=== PATIENT | female | born 2000 | race Caucasian/White ===

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

== ENCOUNTER → 2022-04-25 14:21 | Outpatient (BNVA) | payer OTHER, SELFPAY | PROVIDERS: Family Provider Family Medicine; PCP Family Medicine; Visit Provider Nurse Practitioner Women's Health | DX: Z12.4 Encounter for screening for malignant neoplasm of cervix (principal) | CPT/HCPCS: 88175 ==

== ENCOUNTER → 2022-08-13 09:40 | Outpatient (BNVA) | payer OTHER, SELFPAY | PROVIDERS: Family Provider Family Medicine; PCP Family Medicine; Visit Provider Family Medicine | DX: O26.899 Other specified pregnancy related conditions, unspecified trimester (principal); R30.0 Dysuria; Z3A.00 Weeks of gestation of pregnancy not specified | CPT/HCPCS: 80307; 81000; 81025; 84144; 84443; 84702; 85025; 86592; 86762; 86803; 86850; 86900; 87086; 87340; 87491; 87591; 87624; 87806 ==

== ENCOUNTER 2022-09-10 09:01 | Outpatient (CLI) | payer OTHER, SELFPAY ==
--- NOTE | 2022-09-10 09:15 | US_ITS ---
WS: [id number] EARLY OBSTETRICAL ULTRASOUND (<14 WEEKS). HISTORY: Dating. COMPARISON: None available. Single intrauterine gestational sac is identified. Cardiac activity at 176 BPM. [place]-rump length roro sures 3.3 cm which corresponds to a gestation of 10w1d. Normal-appearing yolk sac and amnion demonstr ated. No subchorionic hemorrhage. No free fluid. Poor visualization of the RIGHT ovary. LEFT ovary is not visualized. No adnexal masses. US/US OB <= 14 weeks fetus [id number] IMPRESSION: 1. Single intrauterine gestation of 10 weeks 1 day with an EDC of 04/07/2023. 2. Normal cardiac activity.
== END 2022-09-10 09:02 | disposition home or self-care (01) ==
PROVIDERS: PCP Family Medicine; Visit Provider Family Medicine
DX: Z36.87 Encounter for antenatal screening for uncertain dates (principal); Z3A.10 10 weeks gestation of pregnancy
CPT/HCPCS: 76801; 80307; 81000; 81025; 84144; 84443; 84702; 85025; 86592; 86762; 86803; 86850; 86900; 87086; 87340; 87491; 87591; 87624; 87806

== ENCOUNTER → 2022-09-25 16:59 | Outpatient (BNVA) | payer OTHER, SELFPAY | PROVIDERS: PCP Family Medicine; Visit Provider Family Medicine | DX: R30.0 Dysuria (principal) | CPT/HCPCS: 81000; 87086 ==

== ENCOUNTER 2022-11-29 13:25 | Outpatient (CLI) | payer OTHER, SELFPAY ==
--- NOTE | 2022-11-29 13:30 | US_ITS ---
WS: [id number] OBSTETRICAL ULTRASOUND COMPLETE HISTORY: Anatomy scan. COMPARISON: 09/10/2022 Single intrauterine gestation in Cephalic presentation. Cervix is Closed and normal length. Cervical length is 3.6 cm. Normal amount of amniotic fluid surrounds the fetus. Placenta: Posterior, no previa or abruption. Placenta grade 1 Heart: 160 BPM. 4 chamber heart is not well visualized due to position of the fetus. Outflow tracts a re also not well visualized due to position of the fetus. Anatomy: Intracranial structures and spine are normal. kidneys, stomach and urinary bladd er are unremarkable. Abdominal wall, three-vessel cord and cord insertion site are normal. 4 extremities are present. profile: Not visualized. Gender: Female measurements: BPD = 4.9 cm = 20w5d; HC = 18.5 cm = 20w6d; AC = 16.1 cm = 21w1d; FL = 3.8 cm = 22w2d; EFW: 432 g. Biometry is internally concordant. AGA by ultrasound: 21w2d DENYS by ultrasound: 04/08/2023. US/US OB >= 14 weeks fetus [id number] IMPRESSION: 1. Single intrauterine gestation of 21w2d with an DENYS of 04/08/2023. 2. Limited evaluation of the heart, outflow tracts and profile due to fe bailey position. Remaining anatomy is negative.
== END 2022-11-29 13:26 | disposition home or self-care (01) ==
LOC: RAD 13:26
PROVIDERS: PCP Family Medicine; Visit Provider Family Medicine
DX: Z34.02 Encounter for supervision of normal first pregnancy, second trimester (principal)
CPT/HCPCS: 76805

== ENCOUNTER 2022-12-25 13:57 | Outpatient (CLI) | payer OTHER, SELFPAY ==
--- NOTE | 2022-12-25 14:15 | US_ITS ---
WS: [id number] Exam: US OB limited [id number] Date/Time of Exam: 12/25/2022 2:52 PM Reason For Exam: Follow up US Limited exam NUMBER: Single PRESENTATION: Vertex CARDIAC ACTIVITY: 164 MOVEMENT: Satisfactory AMNIOTIC FLUID VOLUME: Subjectively normal PLACENTA: Posterior. No previa or abruption. ESTIMATED GESTATIONAL AGE: 25 weeks 1 day heart was unremarkable. Right and left ventricular outflow tracts were identified and appear no rmal. Facial profile appears normal. US/US OB limited [id number] IMPRESSION: Viable intrauterine with single fetus estimated at 25 weeks 1 day. Salvador osorio DENYS 04/08/2023.
== END 2022-12-25 13:58 | disposition home or self-care (01) ==
LOC: RAD 14:01
PROVIDERS: PCP Family Medicine; Visit Provider Family Medicine
DX: Z34.02 Encounter for supervision of normal first pregnancy, second trimester (principal); Z3A.25 25 weeks gestation of pregnancy
CPT/HCPCS: 76815

== ENCOUNTER → 2023-01-15 10:14 | Outpatient (BNVA) | payer OTHER, SELFPAY | PROVIDERS: PCP Family Medicine; Visit Provider Family Medicine | DX: Z34.00 Encounter for supervision of normal first pregnancy, unspecified trimester (principal) | CPT/HCPCS: 82950 ==

== ENCOUNTER → 2023-02-18 10:10 | Outpatient (BNVA) | payer OTHER, SELFPAY | PROVIDERS: PCP Family Medicine; Visit Provider Family Medicine | DX: Z51.81 Encounter for therapeutic drug level monitoring (principal) | CPT/HCPCS: 85025 ==

== ENCOUNTER → 2023-03-13 15:03 | Outpatient (BNVA) | payer OTHER, SELFPAY | PROVIDERS: PCP Family Medicine; Visit Provider Family Medicine | DX: Z34.00 Encounter for supervision of normal first pregnancy, unspecified trimester (principal) | CPT/HCPCS: 87081 ==

== ENCOUNTER → 2023-03-25 11:19 | Outpatient (BNVA) | payer OTHER, SELFPAY | PROVIDERS: PCP Family Medicine; Visit Provider Family Medicine | DX: Z34.00 Encounter for supervision of normal first pregnancy, unspecified trimester (principal); R03.0 Elevated blood-pressure reading, without diagnosis of hypertension | CPT/HCPCS: 82570; 84156 ==

== ENCOUNTER 2023-03-30 00:50 | Inpatient (IN) | payer OTHER, SELFPAY ==
[2023-03-29] VITALS (80 sets, daily range): BP systolic 123–170; BP diastolic 70–107; PULSE 80–117; RESP 17–18; TEMP 36.1–37.1; O2SAT 90–100; BMI 36.7
--- NOTE | 2023-03-29 13:55 | US_ITS ---
WS: [id number] BIOPHYSICAL PROFILE AMNIOTIC FLUID HISTORY: contractions COMPARISON: 12/25/2022 position: Vertex. Cardiac activity: 141 bpm. Cervix: Obscured by the head. Placenta: Posterior, no previa or abruption. Placenta grade: 2 Parameters are as follows: Breathin Movement: 2 Tone: 2 Fluid volume: 2 Amniotic Fluid Index: 10.7 cm. IMPRESSION: 1. Biophysical profile score: 8/8. 2. Normal amniotic fluid.
--- NOTE | 2023-03-29 15:35 | PM.HP ---
Providers/Chief Complaint Primary Care Provider: Philippe Mtz MD Chief Complaint: Contractions History of Present Illness Annika Goncalves is a 23 year old @ 38.4 weeks by LMP c/with 10 wk US. Her is currently complicated by new onset gestational hypertension with intermittent severe features. The patient presented to labor and delivery triage on the afternoon of 03/29/2023 due to contractions. The patient noted contractions that started at approximately 3:30 AM on 03/29/2023. Her contractions continued to increase and get closer together. In triage she was noted to be 2 cm and 75% effaced. After an hour and a half, she had made no change. heart tones have been in the mid 150s with moderate variability good accelerations. There was a period of time where the heart tones were flat and concerning, so a biophysical profile was done was 8 out of 8 with a fluid level of 10. The patient's initial blood pressure was elevated but then her blood pressures were declining down into the low 140s. She was monitored to see which direction these were ago and they have continued to climb. They are now moving up as high as 170/97. With her blood pressures moving up and her having regular contractions at this gestational age, it was felt best to keep her for delivery. The patient does have a headache as well as nausea without vomiting. She has had some loose stools intermittently. She denies any chest pains, shortness of breath, cough, fever, dysuria, leakage of fluid, vaginal bleeding. Medications/Allergies Home Medications Medication Instructions Recorded Confirmed Last Taken Type prenat.vits,navdeep,url-vkqk-urwyn 1 tab PO DAILY 05/29/22 03/25/23 Unknown History Finacea 15 % topical foam (azelaic 1 applic topical BID #15 grams 08/31/22 03/25/23 Unknown Rx acid) adapalene 0.3 % topical gel 1 applic topical DAILY #45 grams 09/26/22 03/25/23 Unknown Rx Allergies Allergy/AdvReac Type Severity Reaction Status Date / Time No Known Allergies Allergy Verified 08/31/22 11:54 PFSH Acute PFSH: Medical History No pertinent past medical history neghx:htn,dm,thyroid,dvt/pe PCP: [facility] Primary oligomenorrhea Surgical History No pertinent past surgical history Family History Grandfather Diabetes Maternal great grandfather Denies family history of Colon cancer Ovarian cancer Heart disease Hyperlipidemia Breast cancer Family history of thyroid problem Hypertension Uterine cancer Stroke Social History Smoking and tobacco status: never smoked Alcohol intake: never Substance/Drug Use: never 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 DTRs in the patellar tendon or normal. A&P Assessment and plan (1) Supervision of normal intrauterine in primigravida: The patient is currently jeremiah every 4 minutes. heart tones are in the mid 150s with moderate variability and good accelerations with a category 1 tracing. We will recheck the patient and approximately half an hour and if no further changes been made, then we will plan to add IV Pitocin to augment labor. (2) Gestational hypertension: The patient's blood pressures have significantly increased and she is having intermittent severe blood pressure readings. We will treat these and if her blood pressures continue to stay elevated, we may need to give IV magnesium. We will get the preeclamptic work-up done and compare her urine protein creatinine ratio to 1 done on Saturday. I discussed the benefits versus risks of delivery versus waiting and the patient and her are in agreement with the current plan of care. Attestations Medical Necessity Statement*: The patient will be here for greater than 2 midnights due to routine intrapartum and management of labor and delivery. Coding Level of Care Code Acute Code for Chg Fwd Diagnoses Supervision of normal intrauterine in primigravida Z34.00 Gestational hypertension O13.9
[2023-03-29] MEDS: labetalol 5 mg/mL SDV 20mL 20 MG IVP (16:01)
[2023-03-29 16:14] LABS: Basophils % 0.2 %; Eosinophils % 0.2 %; Hematocrit 38.6 % (36-47); Lymphocytes # 1.3 10^3/uL (0.8-4.8); Lymphocytes % 10.4 %; Mean Corpuscular HGB Conc 35.2 g/dL (30-55); Mean Corpuscular Hemoglobin 31.3 pg (27-33); Mean Corpuscular Volume 88.9 fl (85-98); Mean Platelet Volume 9.9 fL (7.4-10.4); Monocytes # 0.9 10^3/uL (0.2-0.9); Monocytes % 7.3 %; Neutrophils # 10.05 10^3/uL (1.8-7.7); Neutrophils % 81.3 %; Nucleated Red Blood Cells % 0 %; Platelet Count 187 10^3/cmm (157-399); Red Blood Count 4.34 10^6/uL (3.85-5.65); Red Cell Distribution Width 12.3 % (12.1-15.1); White Blood Count 12.39 10^3/uL (3.29-11.43)
[2023-03-29 16:43] LABS: Alanine Aminotransferase 10 U/L (0-33); Albumin Level 4.1 g/dL (3.5-5.2); Alkaline Phosphatase 162 U/L (35-105); Anion Gap 16.9 (5-19); Aspartate Amino Transferase 15 U/L (0-32); Blood Urea Nitrogen 7 mg/dL (6-20); Calcium 9.2 mg/dL (8.5-10.5); Carbon Dioxide 21 mmol/L (22-29); Chloride 104 mmol/L (98-107); Globulin 2.7 g/dL (1.3-4.6); Glomerular Filtration Rate 154.3 mL/min (90-130); Glucose 78 mg/dL (65-115); Osmolality Calculated 283 mOsm/kg (285-295); Potassium 3.9 mmol/L (3.5-5.1); Sodium 138 mmol/L (136-145); Total Bilirubin 0.4 mg/dL (0.15-1.2); Total Protein 6.8 g/dL (6.6-8.7); Uric Acid 4.5 mg/dL (2.4-5.7)
[2023-03-29 16:44] LABS: Urine Creatinine 145 mg/dL (28-217)
[2023-03-29 16:45] LABS: UPRO/UCREAT Ratio 0.19 mg/mg CR; Urine Protein Random 28 mg/dL
[2023-03-29] MEDS: labetalol 5 mg/mL SDV 20mL 40 MG IVP (16:45)
[2023-03-29] MEDS: lactated ringers 1,000 ML 999 ML IV ×2 (17:50→19:28)
[2023-03-29] MEDS: ondansetron 2 mg/ML SDV 2 mL 4 MG IVP (17:57)
--- NOTE | 2023-03-29 18:51 | P.ANESASSM_ITS ---
Pre-Anesthetic Assessment Height/Weight: Height 1.63 m Weight 97.069 kg Temp Pulse Resp BP O2 Del Method 97.7 F 99 18 136/88 Room Air 03/29/23 17:53 03/29/23 18:40 03/29/23 16:18 03/29/23 18:40 03/29/23 16:00 Preop Diagnosis: IUP Labor Epidural Familial anesthetic complications: None Was Beta Alfie taken within 24 hours: Yes Last intake: 1100- solid food clears current Social No alcohol and No tobacco Exam alert, oriented x 3 and clear to auscultation bilaterally Airway Submandibular: within normal limits Cervical ROM: within normal limits Mallampati: Class II Dentition: full History/ROS No significant history except as noted Pulmonary None reported CV/HEM Hypertension (Gestational HTN) None reported Hepatic None reported GI Gastroesophageal Reflux Disease Metabolic None reported Musc/skel None reported Neuropsych None reported Anesthetic Plan ASA status: 2 Anesthesia: Regional (specify below) Other: Labor Epidural Medications/Allergies Home Medications Medication Instructions Recorded Confirmed Last Taken Type prenat.vits,navdeep,bvo-qiac-glcde 1 tab PO DAILY 05/29/22 03/25/23 Unknown History Finacea 15 % topical foam (azelaic 1 applic topical BID #15 grams 08/31/22 03/25/23 Unknown Rx acid) adapalene 0.3 % topical gel 1 applic topical DAILY #45 grams 09/26/22 03/25/23 Unknown Rx Allergies Allergy/AdvReac Type Severity Reaction Status Date / Time No Known Allergies Allergy Verified 08/31/22 11:54 Current Medications Generic Name Dose Route Start Last Admin Trade Name Violet PRN Reason Stop Dose Admin Lactated Ringer's 1,000 mls @ 999 mls/hr 03/29/23 16:17 03/29/23 17:50 Lactated Ringers IV 999 mls/hr .Q1H1M PRN Administration Per L&D Rescitation Protocol Labetalol HCl 20 mg 03/29/23 15:23 03/29/23 16:01 Labetalol 5 Mg/Ml Sdv 20ml IVP 20 mg PRN PRN Administration HYPERTENSION Protocol Labetalol HCl 40 mg 03/29/23 15:23 03/29/23 16:45 Labetalol 5 Mg/Ml Sdv 20ml IVP 40 mg PRN PRN Administration HYPERTENSION Protocol Ondansetron HCl 4 mg 03/29/23 16:17 03/29/23 17:57 Ondansetron 2 Mg/Ml Sdv 2 Ml IVP 4 mg Q4H PRN Administration NAUSEA AND VOMITING PFSH Anesthesia Medical History No pertinent past medical history neghx:htn,dm,thyroid,dvt/pe PCP: [facility] Primary oligomenorrhea Surgical History No pertinent past surgical history Family History Grandfather Diabetes Maternal great grandfather Denies family history of Colon cancer Ovarian cancer Heart disease Hyperlipidemia Breast cancer Family history of thyroid problem Hypertension Uterine cancer Stroke Social History Smoking and tobacco status: never smoked Alcohol intake: never Substance/Drug Use: never 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 Reproductive History : 1 Data Anesthesia 03/29/23 15:57 03/29/23 15:57 Short CBC 03/29/23 Range/Units 15:57 WBC 12.39 H (3.29-11.43) 10^3/uL Hgb 13.60 (11.27-16.99) g/dL Hct 38.6 (36-47) % MCV 88.9 (85-98) fl Plt Count 187 (157-399) 10^3/cmm Neut % (Auto) 81.3 % Neut # (Auto) 10.05 H (1.8-7.7) 10^3/uL BMP 03/29/23 15:57 Sodium 138 Potassium 3.9 Chloride 104 Carbon Dioxide 21 L BUN 7 Creatinine 0.5 Glucose 78 Calcium 9.2 Liver Function 03/29/23 Range/Units 15:57 Total Bilirubin 0.4 (0.15-1.2) mg/dL AST 15 (0-32) U/L ALT 10 (0-33) U/L Alkaline Phosphatase 162 H (35-105) U/L Albumin 4.1 (3.5-5.2) g/dL Cardiac Studies: No Data to Display Anesthesia Procedures Epidural Time Out Performed: Yes Consent: from patient, risks and benefits reviewed and patient agrees to proceed Lumbar Level: L3-L4 Epidural position: sitting Epidural procedure: sterile prep of area, 1% lidocaine to numb the area, negative for paresthesia passed, test dose given, 1.5% xylocaine 1:200k epi, placed PCEA, no systemic response, sterile dressing applied, L.U.D. no apparent complications and 0.2% Ropiavacaine @ mls/hr (10) Additional Comments: LINDSAY at 7cm on second attempt catheter threaded to 12cm - heme - csf. Patient r eports analgesia, VSS.
[2023-03-29] MEDS: ROPivacaine syringe 100 MG/50 ML SYRINGE 10 MG EPIDURAL ×2 (19:30→22:26)
[2023-03-29] MEDS: oxytocin 30 UNIT/500 ML BAG IV (20:10)
[2023-03-29] MEDS: dextrose 5%-lactated ringers 1,000 ML 125 ML IV (20:30)
[2023-03-30] VITALS (22 sets, daily range): BP systolic 127–156; BP diastolic 80–111; PULSE 92–123; RESP 15–19; TEMP 36.3–37.4; O2SAT 96–98
[2023-03-30] MEDS: lidocaine 2% INJ 20 mL INJECTION (01:16)
--- NOTE | 2023-03-30 01:32 | PM.DELIVERY ---
Delivery Note: Date of delivery: March 30, 2023 Pre-delivery diagnoses: 1. Intrauterine at 38.5 weeks gestation 2. Gestational hypertension Post-delivery diagnoses: 1. Intrauterine status post spontaneous vaginal delivery at 38.5 weeks gestation 2. Gestational hypertension 3. Meconium stained fluid 4. Delivery of healthy female weighing 7 pounds 2 ounces with Apgars of 8 and 8 Procedure: Spontaneous vaginal delivery Delivering Physician: Philippe Mtz MD Estimated blood loss (mL): 250 Findings: 1. Intact placenta with central umbilical cord insertion site 2. Healthy female weighing 7 pounds 2 ounces with Apgars of 8 and 8 Pre-Delivery Course: Annika Goncalves is a 23 year old G1 now P1 status post spontaneous vaginal delivery @ 38.5 weeks by LMP c/with 10 wk US.? Her was complicated by new onset gestational hypertension upon presentation to labor and delivery. The patient presented to labor and delivery triage on the afternoon of 03/29/2023 due to contractions.? The patient noted contractions that started at approximately 3:30 AM on 03/29/2023.? Her contractions continued to increase and get closer together.? In triage she was noted to be 2 cm and 75% effaced.? After an hour and a half, she had made no change.? heart tones have been in the mid 150s with moderate variability good accelerations.? The patient's blood pressure is then started to increase up to the 160s to 170s systolic. Because of this she was monitored further and she then began to make change on her own to 3 cm dilation. The patient was kept for spontaneous labor and intermittent severe blood pressures. The patient was given IV labetalol for treatment of the elevated blood pressures. She responded well. The patient received a laboring epidural and had good anesthesia from this. Afterwards, the patient's blood pressure decreased well. And she did not need further doses of IV labetalol. The patient was given IV Pitocin to help augment labor and the patient made steady change. SROM took place at 12:05 AM on 03/30/2023. The patient was then completed by 12:14 AM on 03/30/2023. Delivery: The patient began pushing at 12:37 AM on 03/30/2023. The patient pushed well and the infant delivered in the OA position had 12:46 AM on 03/30/2023. A nuchal cord was present and reduced prior to delivery of the infant. The right shoulder was anterior shoulder and it delivered with ease. The rest of the infant delivered with ease. The infant's mouth and nose were bulb suction by myself. The infant was crying immediately after delivery. The infant was placed on the mother's chest where the nurses were waiting to care for her. The cord was clamped by myself and cut by the infant's father. Cord blood was obtained. The cord was then drained blood and traction was placed on umbilical cord. Uterine massage was carried out and the placenta delivered at 12:50 AM without complication. The placenta was noted to be intact with a central umbilical cord insertion site. IV Pitocin was bolused. The patient initially had moderate to heavy bleeding that improved with uterine massage. The cervix was inspected and no lacerations were noted. The vaginal wall was inspected and a right and left second-degree labial laceration were noted. The laceration on the left was not bleeding and did not need suturing. The lesion on the right was bleeding and repair was needed. 2% lidocaine was placed for anesthesia. The laceration was repaired using 3-0 Vicryl in a running fashion. The patient tolerated this well. A rectal exam was done and no sutures were noted in the rectal vault. Currently both the mother and infant are doing well. History History History 1 Term 1 0 Miscarriages/Ectopic 0 Living Children 1 Past Pregnancies Del. Date GA/Weeks Outcome Route Wt Inf Gender Labor Lgth Comp. Anesthesia Location 03/30/23 38 live - full term Vaginal 7 lb 2 oz Female 21 hr regional [facility] - [facility] Delivery Date: 03/30/23 Last Updated by: Philippe Mtz MD Spontaneous labor, [place] that started at delivery. A&P Assessment and plan (1) Spontaneous vaginal delivery: (2) Gestational hypertension: Coding Level of Care Code Acute Code for Chg Fwd Diagnoses Spontaneous vaginal delivery O80 Gestational hypertension O13.9
[2023-03-30] MEDS: oxytocin 30 UNIT/500 ML BAG 125 UNIT IV (01:46)
[2023-03-30] MEDS: dextrose 5%-lactated ringers 1,000 ML 125 ML IV (04:18)
--- NOTE | 2023-03-30 08:33 | ANE.PACU2 ---
Inpatient post-anesthesia follow up: Airway intact: Yes Vital signs: Temperature 98.5 F Pulse Rate 97 Respiratory Rate 18 Blood Pressure 127/80 Pulse Oximetry 97 Oxygen Delivery Me thod Room Air Oxygen Flow Rate Fraction of Inspir ed Oxygen Hydration adequate: Yes Nausea and vomiting: No Pain level: 2 Mental status: Baseline Additional Comments: Anes start 03/29/23 @1357 Anes end 03/30/23 @0203
[2023-03-30] MEDS: ibuprofen 800 mg tablet PO ×3 (09:37→20:39)
[2023-03-30] MEDS: prenatal vitamin Capsule 1 CAP PO (09:37)
[2023-03-30] MEDS: docusate sodium 100 mg Capsule PO ×2 (09:37→20:39)
[2023-03-30 13:54] LABS: Basophils % 0.2 %; Eosinophils # 0.1 10^3/uL (0.0-0.8); Eosinophils % 0.9 %; Hematocrit 27.4 % (36-47); Lymphocytes # 1.5 10^3/uL (0.8-4.8); Lymphocytes % 14.7 %; Mean Corpuscular HGB Conc 35.8 g/dL (30-55); Mean Corpuscular Hemoglobin 31.8 pg (27-33); Mean Platelet Volume 9.9 fL (7.4-10.4); Monocytes % 9.8 %; Neutrophils # 7.67 10^3/uL (1.8-7.7); Neutrophils % 73.7 %; Nucleated Red Blood Cells % 0 %; Platelet Count 154 10^3/cmm (157-399); Red Blood Count 3.08 10^6/uL (3.85-5.65); Red Cell Distribution Width 12.6 % (12.1-15.1)
[2023-03-31 04:04] VITALS: BP 136/84; PULSE 76; RESP 16; TEMP 36.7; O2SAT 98
[2023-03-31] MEDS: docusate sodium 100 mg Capsule PO (09:15)
[2023-03-31] MEDS: ibuprofen 800 mg tablet PO ×2 (09:16→15:32)
[2023-03-31] MEDS: prenatal vitamin Capsule 1 CAP PO (09:16)
[2023-03-31 09:18] VITALS: BP 152/108; PULSE 76; RESP 17; TEMP 36.6; O2SAT 98
--- NOTE | 2023-03-31 09:54 | PM.DCS ---
Discharge Providers Date of Admission: 03/30/23 00:50 Date of Discharge: March 31, 2023 Attending Provider at Admission: Philippe Mtz MD Attending Provider at Discharge: Philippe Mtz MD Primary Care Provider: Philippe Mtz MD Diagnoses at Discharge Discharge Diagnosis (1) Spontaneous vaginal delivery: Status: Resolved (2) Gestational hypertension: Status: Acute Other Information Additional DC diagnoses/information: 1.? Intrauterine status post spontaneous vaginal delivery at 38.5 weeks gestation 2.? Gestational hypertension 3.? Meconium stained fluid 4.? Delivery of healthy infant female weighing 7 pounds 2 ounces with Apgars of 8 and 8 Reason for Visit Reason for Visit: Contractions Brief History: Annika Goncalves is a 23 year old G1 now P1 status post spontaneous vaginal delivery @ 38.5 weeks by LMP c/with 10 wk US.? Her was complicated by new onset gestational hypertension upon presentation to labor and delivery. The patient presented to labor and delivery triage on the afternoon of 03/29/2023 due to contractions.? The patient noted contractions that started at approximately 3:30 AM on 03/29/2023.? Her contractions continued to increase and get closer together.? In triage she was noted to be 2 cm and 75% effaced.? After an hour and a half, she had made no change.? heart tones have been in the mid 150s with moderate variability good accelerations.? The patient's blood pressure is then started to increase up to the 160s to 170s systolic.? Because of this she was monitored further and she then began to make change on her own to 3 cm dilation.? The patient was kept for spontaneous labor and intermittent severe blood pressures. Hospital Course Hospital Course The patient made steady progress and delivered at 12:46 AM on 03/30/2023. The patient had no significant complications with the labor process other than needing a few doses of IV labetalol due to severe pressures. Her blood pressures are currently in the 150s over 100s. We will start her on labetalol 100 mg twice a day and have her monitor her blood pressure at home. If her blood pressures are staying elevated, we will continue to increase her dose as needed. The patient has been feeling well overall and denies any symptoms related to her blood pressure. the patient is doing well otherwise and her bleeding is slowing down well. She is ambulating, voiding, passing gas and tolerating food by mouth. We discussed the need to keep her activity levels decreased especially over the next week and discussed routine discharge instructions. We will plan to discharge her this afternoon as long as everything continues to go well. All questions were answered. The patient and her are in agreement with current plan of care. Physical Exam Narrative: General: Alert and oriented x3 Cardiac: Regular rate and rhythm without murmurs Lungs: Clear to auscultation bilaterally without wheezes, crackles or rhonchi Abdomen: Soft, mild tenderness over uterus. The uterus is firm and 1 cm below the umbilicus. Extremities: +1 pitting edema in the bilateral lower extremities. Deep tendon reflexes are normal. Urinary Catheter Management: Menard: Cath Placed During This Visit: yes, but has since been removed by the nurse Reason for Continuing Indwelling Catheter: Decision to DC Catheter Urinary Catheter Date of Insertion: 03/29/23 Urinary Catheter Time of Insertion: 20:00 Date Urinary Catheter Removed: 03/30/23 Time Urinary Catheter Discontinued: 00:35 Discharge Data Studies Completed and Pending Completed Studies During Hospitalization Category Date Time Status US OB BPP wo NST 71212 Routine Ultrasound 03/29/23 13:55 Completed Laboratory Results WBC 10.40 10^3/uL (3.29-11.43) 03/30/23 13:40 Corrected WBC Cancelled 03/30/23 13:10 RBC 3.08 10^6/uL (3.85-5.65) L 03/30/23 13:40 Hgb 9.80 g/dL (11.27-16.99) L 03/30/23 13:40 Hct 27.4 % (36-47) L 03/30/23 13:40 MCV 89.0 fl (85-98) 03/30/23 13:40 MCH 31.8 pg (27-33) 03/30/23 13:40 MCHC 35.8 g/dL (30-55) 03/30/23 13:40 RDW 12.6 % (12.1-15.1) 03/30/23 13:40 Plt Count 154 10^3/cmm (157-399) L 03/30/23 13:40 MPV 9.9 fL (7.4-10.4) 03/30/23 13:40 Neut % (Auto) 73.7 % 03/30/23 13:40 Lymph % (Auto) 14.7 % 03/30/23 13:40 [place] % (Auto) 9.8 % 03/30/23 13:40 Eos % (Auto) 0.9 % 03/30/23 13:40 Baso % (Auto) 0.2 % 03/30/23 13:40 Neut # (Auto) 7.67 10^3/uL (1.8-7.7) 03/30/23 13:40 Lymph # (Auto) 1.5 10^3/uL (0.8-4.8) 03/30/23 13:40 [place] # (Auto) 1.0 10^3/uL (0.2-0.9) H 03/30/23 13:40 Eos # (Auto) 0.1 10^3/uL (0.0-0.8) 03/30/23 13:40 Baso # (Auto) 0.0 10^3/uL (0.0-0.1) 03/30/23 13:40 Nucleated RBC % (auto) 0 % 03/30/23 13:40 Nucleated RBCs # 0.0 /100WBC 03/30/23 13:40 Sodium 138 mmol/L (136-145) 03/29/23 15:57 Potassium 3.9 mmol/L (3.5-5.1) 03/29/23 15:57 Chloride 104 mmol/L (98-107) 03/29/23 15:57 Carbon Dioxide 21 mmol/L (22-29) L 03/29/23 15:57 Anion Gap 16.9 (5-19) 03/29/23 15:57 BUN 7 mg/dL (6-20) 03/29/23 15:57 Creatinine 0.5 mg/dL (0.5-0.9) 03/29/23 15:57 GFR Calculation 154.3 mL/min (90-130) H 03/29/23 15:57 Glucose 78 mg/dL (65-115) 03/29/23 15:57 Calculated Osmolality 283 mOsm/kg (285-295) L 03/29/23 15:57 Uric Acid 4.5 mg/dL (2.4-5.7) 03/29/23 15:57 Calcium 9.2 mg/dL (8.5-10.5) 03/29/23 15:57 Total Bilirubin 0.4 mg/dL (0.15-1.2) 03/29/23 15:57 AST 15 U/L (0-32) 03/29/23 15:57 ALT 10 U/L (0-33) 03/29/23 15:57 Alkaline Phosphatase 162 U/L (35-105) H 03/29/23 15:57 Total Protein 6.8 g/dL (6.6-8.7) 03/29/23 15:57 Albumin 4.1 g/dL (3.5-5.2) 03/29/23 15:57 Globulin 2.7 g/dL (1.3-4.6) 03/29/23 15:57 U Random Total Protein 28 mg/dL 03/29/23 15:57 Urine Creatinine 145 mg/dL (28-217) 03/29/23 15:57 Protein/Creatinin Ratio 0.19 mg/mg CR 03/29/23 15:57 Blood Type O Positive 03/29/23 15:57 Rho(D) Type Positive 03/29/23 15:57 Antibody Screen Negative 03/29/23 15:57 Vitals Last Vital Signs Temp 97.8 F 03/31/23 09:18 Pulse 76 03/31/23 09:18 Resp 17 03/31/23 09:18 BP 152/108 03/31/23 09:18 Pulse Ox 98 03/31/23 09:18 O2 Del Method Room Air 03/31/23 09:18 Discharge Plan Discharge Patient Disposition: Home Condition: Good Prescriptions: New ibuprofen 800 mg Tablet 800 mg PO TID Qty: 30 0RF ferrous sulfate 325 mg (65 mg iron) tablet 325 mg PO DAILY Qty: 30 0RF Continued prenat.vits,navdeep,huy-vncz-mvgxj Tablet 1 tab PO DAILY Finacea 15 % foam 1 applic topical BID Qty: 15 6RF Rx Instructions: apply to face twice a day adapalene 0.3 % gel 1 applic topical DAILY Qty: 45 6RF Rx Instructions: Apply pea-sized amount to clean dry, face nightly Discontinued Adacel(Tdap Adolesn/Adult)(PF) 2 Lf-(2.5-5-3-5 mcg)-5Lf/0.5 mL syringe 0.5 ml IM ONCE Qty: 0.5 0RF Discharge Orders: Discharge Order (Routine); Ordered 03/31/23 Ordered By: Philippe Mtz Referrals: Philippe Mtz MD [Primary Care Provider] - 4-7 days (Also 6 weeks ) Discharge Diet: Regular Discharge Activity: Limit activity as instructed Patient Instructions: Depression (DC), Bleeding (DC), Preeclampsia and Eclampsia After Delivery (GEN), Hemorrhage (DC), OB Caring for Baby - [facility], OB Discharge Report, OB Food/Drug Interaction Guide, Opioid Safety, OB Your Care - [facility], OB Vaginal Deliveries Activity Restrictions/Additional Instructions: Keep overall activity levels low for the next week to allow your body to heal. Check your blood pressure twice a day and if your blood pressures are getting above 160/110, please contact Dr. Mtz for further recommendations. Nothing per vagina for 6 weeks. Discharge Attestations Time Spent in Discharge Care*: greater than 30 min Quality Metrics Clinical Quality Measures [ No reported AMI, CVA or VTE this stay] Coding Level of Care Code Acute Code for Chg Fwd Diagnoses Spontaneous vaginal delivery O80 Gestational hypertension O13.9
[2023-03-31 15:43] VITALS: BP 155/106; PULSE 101; RESP 17; TEMP 36.8; O2SAT 97
[2023-03-31 16:40] VITALS: BP 155/106; PULSE 101; RESP 17; TEMP 36.8; O2SAT 97
== END 2023-03-31 16:40 | disposition home or self-care (01) | DRG 807 ==
LOC: OPOB 04-05 07:38
PROVIDERS: Admitting Provider Family Medicine; PCP Family Medicine; Visit Provider Family Medicine
DX: O13.4 Gestational [pregnancy-induced] hypertension without significant proteinuria, complicating childbirth (principal); Z37.0 Single live birth; O77.0 Labor and delivery complicated by meconium in amniotic fluid; O69.81X0 Labor and delivery complicated by cord around neck, without compression, not applicable or unspecified; Z3A.38 38 weeks gestation of pregnancy; O70.1 Second degree perineal laceration during delivery
CPT/HCPCS: 36415; 51702; 59025; 59409; 76819; 80053; 82570; 84156; 84550; 85025; 86850; 86900; 99211; J2405; J2590; J2795; J3490; J7120; J7121

== ENCOUNTER → 2024-08-01 11:21 | Outpatient (BNVA) | payer BC, SELFPAY | PROVIDERS: PCP Family Medicine | DX: J02.9 Acute pharyngitis, unspecified (principal) | CPT/HCPCS: 87880 ==

== ENCOUNTER → 2024-12-09 10:31 | Outpatient (BNVA) | payer OTHER, SELFPAY | PROVIDERS: PCP Family Medicine; Visit Provider Nurse Practitioner Family | DX: J02.9 Acute pharyngitis, unspecified (principal) | CPT/HCPCS: 87880 ==

== ENCOUNTER → 2025-02-16 10:58 | Outpatient (BNVA) | payer OTHER, SELFPAY | PROVIDERS: PCP Family Medicine; Visit Provider Nurse Practitioner Women's Health | DX: N92.6 Irregular menstruation, unspecified (principal) | CPT/HCPCS: 81025 ==

== ENCOUNTER 2025-02-28 09:25 | Outpatient (CLI) | payer OTHER, SELFPAY ==
--- NOTE | 2025-02-28 09:28 | USR_ITS ---
PROCEDURE INFORMATION: Exam: US First Trimester, Transabdominal and US , Transvaginal Exam date and time: 02/28/2025 10:22 AM Age: 25 years old Clinical indication: Lmp or gestational age (in weeks): 5w5d by US. 8w0d by lmp; Antepartum complications; Bleeding; ; Additional info: Spotting/cramping at 8 weeks gestation LABS AND CLINICAL REPORTS: Last menstrual period start date: 01/03/2025 Gestational age (Established): 8 w 0 d Estimated due date (Established): 10/10/2025 TECHNIQUE: Imaging protocol: Real-time transabdominal obstetrical ultrasound of the maternal pelvis and a first trimester , less than 14 weeks 0 days, with image documentation. Transvaginal imaging was used for better evaluation of the fetus, adnexa, and/or cervix. COMPARISON: US OB BPP NST [id number] 03/29/2023 2:17 PM FINDINGS: GESTATION: Gestation: Yolk sac measures 1.1 mm. There is an intrauterine gestation with yolk sac and embryo. Embryonic heart tones are identified with low heart rate of 54 bpm. [place]-rump length is 0.16 cm. Mean sac diameter is 0.95 cm, corresponding to sonographic age of 5 weeks and 5 days. A subchorionic hemorrhage is seen measuring 1.4 x 0.3 x 0.9 cm. Trace fluid is seen in the cervix. Embryo/ cardiac activity (BPM): 54 bpm Extra-embryonic membranes/Placenta: See Gestation finding. Amniotic/Chorionic fluid: Amniotic and extra-amniotic fluid are normal for gestational age. BIOMETRY: Gestational age (AUA): 5 weeks 5 days Mean sac diameter: 0.95 cm. EGA (MSD) is 5 w 5 d MATERNAL: Uterus: Unremarkable. Cervix: Cervical length measures 0 cm. Right ovary/adnexa: Obscured by lack of adequate acoustic window. Left ovary/adnexa: Obscured by lack of adequate acoustic window. Intraperitoneal space: Trace echogenic fluid in the cul-de-sac. Other findings: The ovaries are within normal limits with normal blood flow. US/US OB <=14 wk fetus w transvag IMPRESSION: Intrauterine gestation with very small embryo. Sonographic age is 5 weeks and 5 days based on mean gestational sac diameter. Embryonic heart rate is low, warranting short-term follow-up ultrasound and close clinical correlation. There is also a subchorionic hemorrhage.
--- NOTE | 2025-02-28 09:35 | PM.OBTRLD ---
OB L&D Triage Visit Information: Date of evaluation: 02/28/25 Reason for evaluation: other (Vaginal bleeding in early ) Comments/Additional reason(s) for visit: 24 year old CC:Vaginal bleeding and cramping in first trimester, no dating ultrasound yet,8w3d by LMP 01/03/2025. Scheduled for dating US next week. Inpatient TVUS with findings of slow FHR, approx GA of 5wks and CAMERON. Evaluation: Baseline heart rate: 54 Vital signs: Maternal,stable. Comments: Afebrile, no distress, minimal bleeding/dark. Not cramping at this time. RH POS BG Final Diagnosis Final Diagnosis 1. Vaginal bleeding affecting early : Plan: TVUS ordered with results of ~5wk , low FHR, and CAMERON. Discussed findings with patients. Will continue expectant with outpatient fup. No need for RhoGam. Status: Acute Code(s): O20.9 - Hemorrhage in early , unspecified Other Information/Follow up FINDINGS: GESTATION: Gestation: Yolk sac measures 1.1 mm. There is an intrauterine gestation with yolk sac and embryo. Embryonic heart tones are identified with low heart rate of 54 bpm. [place]-rump length is 0.16 cm. Mean sac diameter is 0.95 cm, corresponding to sonographic age of 5 weeks and 5 days. A subchorionic hemorrhage is seen measuring 1.4 x 0.3 x 0.9 cm. Trace fluid is seen in the cervix. Embryo/ cardiac activity (BPM): 54 bpm Extra-embryonic membranes/Placenta: See Gestation finding. Amniotic/Chorionic fluid: Amniotic and extra-amniotic fluid are normal for gestational age. BIOMETRY: Gestational age (AUA): 5 weeks 5 days Mean sac diameter: 0.95 cm. EGA (MSD) is 5 w 5 d Coding Level of Care Code Acute Code for Chg Fwd Diagnoses Vaginal bleeding affecting early O20.9
== END 2025-02-28 11:00 | disposition home or self-care (01) ==
LOC: OPOB 09:25 → OBGYN 09:26
PROVIDERS: PCP Family Medicine; Visit Provider Obstetrics & Gynecology
DX: O26.851 Spotting complicating pregnancy, first trimester (principal); Z3A.08 8 weeks gestation of pregnancy
CPT/HCPCS: 12345; 76801; 76817; 99211

== ENCOUNTER → 2025-03-02 11:56 | Outpatient (BNVA) | payer OTHER, SELFPAY | PROVIDERS: PCP Family Medicine; Visit Provider Obstetrics & Gynecology | DX: O20.9 Hemorrhage in early pregnancy, unspecified (principal) | CPT/HCPCS: 84702 ==

== ENCOUNTER → 2025-03-03 15:26 | Outpatient (BNVA) | payer OTHER, SELFPAY | PROVIDERS: PCP Family Medicine; Visit Provider Obstetrics & Gynecology | DX: N93.9 Abnormal uterine and vaginal bleeding, unspecified (principal) | CPT/HCPCS: 76817 ==

== ENCOUNTER → 2025-04-09 09:42 | Outpatient (BNVA) | payer OTHER, SELFPAY | PROVIDERS: PCP Family Medicine; Visit Provider Nurse Practitioner Women's Health | DX: O20.9 Hemorrhage in early pregnancy, unspecified (principal) | CPT/HCPCS: 84702 ==

== ENCOUNTER 2025-04-12 09:34 | Outpatient (CLI) | payer OTHER, SELFPAY | END 2025-04-12 09:35 | disposition home or self-care (01) | LOC: LAB 09:35 | PROVIDERS: PCP Family Medicine; Visit Provider Nurse Practitioner Women's Health | DX: O20.0 Threatened abortion (principal) | CPT/HCPCS: 84702 ==

== ENCOUNTER → 2025-05-11 12:57 | Outpatient (BNVA) | payer OTHER, SELFPAY | PROVIDERS: PCP Family Medicine; Visit Provider Nurse Practitioner Women's Health | DX: O20.9 Hemorrhage in early pregnancy, unspecified (principal) | CPT/HCPCS: 84702 ==

== ENCOUNTER 2025-05-13 12:35 | Outpatient (CLI) | payer OTHER, SELFPAY | END 2025-05-13 12:36 | disposition home or self-care (01) | PROVIDERS: PCP Family Medicine; Visit Provider Nurse Practitioner Women's Health | DX: Z32.00 Encounter for pregnancy test, result unknown (principal) | CPT/HCPCS: 84702 ==

== ENCOUNTER 2025-05-25 11:03 | Outpatient (CLI) | payer OTHER, SELFPAY ==
--- NOTE | 2025-05-25 11:30 | USR_ITS ---
PROCEDURE INFORMATION: Exam: US , Transvaginal and US Duplex Artery or Vein, Ovaries, Limited Exam date and time: 05/25/2025 11:30 AM Age: 25 years old Clinical indication: Screening exam; Routine US, uterus; Additional info: O36.80x0 - with inconclusive viability, n. . . LABS AND CLINICAL REPORTS: Last menstrual period start date: 04/09/2025 Gestational age (Established): 6 w 4 d Estimated due date (Established): 01/14/2026 TECHNIQUE: Imaging protocol: Real-time transvaginal obstetrical ultrasound of the maternal pelvis and a first trimester with image documentation. Transvaginal imaging was used for better evaluation of the fetus, adnexa, and/or cervix. Real-time duplex ultrasound scan of the arterial or venous flow of the ovaries with B-mode, color Doppler flow and spectral waveform analysis, Limited Duplex. Duplex exam was performed to evaluate for torsion and other vascular conditions. COMPARISON: US OB transvaginal [id number] 03/03/2025 3:30 PM FINDINGS: GESTATION: Gestation: Yolk sac measures 3.2 mm. A single intrauterine gestation is noted. heart rate: 163 bpm Placenta: Two small foci of subchorionic hemorrhage noted measuring up to 0.6 cm and 0.5 cm respectively. Amniotic fluid (Qualitative): Amniotic fluid is normal for gestational age. BIOMETRY: Mean sac diameter: 1.97 cm. EGA (MSD) is 6 w 6 d MATERNAL: Uterus: The uterus is anteflexed. Right ovary/adnexa: The right ovary measures 2.7 x 2.6 x 2.2 cm with a volume of 8 mL. A dominant right ovarian simple cyst measuring up to 1.4 cm is present. No paraovarian fluid is noted. Given the presence of a dominant cyst/follicle, spectral analysis of right ovarian vasculature was performed to exclude vascular pathology. Confirmed right ovarian blood flow. Normal arterial inflow and spectral sonography. Peak systolic velocity of 7.8 cm/sec with RI of 0.67. Left ovary/adnexa: The left ovary is poorly characterized on this exam, likely obscured secondary to positioning and bowel gas. Intraperitoneal space: No free pelvic fluid. US/US OB transvaginal [id number] IMPRESSION: 1. Single viable intrauterine gestation with estimated gestational age of 6 weeks 4 days and heart rate of 163 bpm. 2. Nonvisualized left ovary. No evidence of adnexal mass. 3. Two small foci of subchorionic hemorrhage noted measuring up to 0.6 cm and 0.5 cm respectively. 4. Arterial blood flow confirmed to the right ovary. No evidence of torsion in the presence of a dominant follicle/cyst.
== END 2025-05-25 11:04 | disposition home or self-care (01) ==
LOC: RAD 11:04
PROVIDERS: PCP Family Medicine; Visit Provider Nurse Practitioner Women's Health
DX: O36.8311 Maternal care for abnormalities of the fetal heart rate or rhythm, first trimester, fetus 1 (principal); O41.8X10 Other specified disorders of amniotic fluid and membranes, first trimester, not applicable or unspecified; Z90.721 Acquired absence of ovaries, unilateral; Z3A.01 Less than 8 weeks gestation of pregnancy
CPT/HCPCS: 76817

== ENCOUNTER → 2025-06-21 09:57 | Outpatient (BNVA) | payer OTHER, SELFPAY | PROVIDERS: PCP Family Medicine; Visit Provider Nurse Practitioner Women's Health | DX: O13.1 Gestational [pregnancy-induced] hypertension without significant proteinuria, first trimester (principal); Z3A.10 10 weeks gestation of pregnancy; O20.9 Hemorrhage in early pregnancy, unspecified | CPT/HCPCS: 80053; 80307; 84315; 85025; 86592; 86762; 86803; 86850; 86900; 87086; 87340; 87806 ==